=== PATIENT | female | born 1985 | race Two or more races ===

== ENCOUNTER 2025-06-01 14:04 | Outpatient (CLI) | payer OTHER | END 2025-06-01 14:05 | disposition home or self-care (01) | LOC: CSHMAMMO 14:04 | PROVIDERS: ATTEND Obstetrics & Gynecology | DX: R92.8 Other abnormal and inconclusive findings on diagnostic imaging of breast (principal); N64.89 Other specified disorders of breast | CPT/HCPCS: G0279 ==